=== PATIENT | female | born 1955 | race Caucasian/White ===

== ENCOUNTER 2018-01-16 11:05 | Emergency (ER) | payer OTHER ==
[~2018-01-16] VITALS: Ht 157.5 cm; Wt 88.9 kg
[2018-01-16] MEDS ORDERED: INSULIN REGULAR, HUMAN 100 UNIT/1 ML 3ML VIAL SQ STA (12:30)
[2018-01-16 12:37] VITALS: BP 152/69
== END 2018-01-16 12:40 | disposition home or self-care (01) ==
LOC: FSED 11:05
DX: E11.65 Type 2 diabetes mellitus with hyperglycemia (principal); M79.2 Neuralgia and neuritis, unspecified; Z91.14 Patient's other noncompliance with medication regimen
CPT/HCPCS: 36415; 80048; 82948; 85025; 99283